=== PATIENT | male | born 1980 | race Caucasian/White ===

== ENCOUNTER 2017-06-30 12:15 | Day surgery (SDC) | payer OTHER ==
[2017-06-28 14:13] VITALS: BMI 34.8
[~2017-06-30 12:15] MED LIST: LACTATED RINGERS 1,000 ML IV SCH; LIDOCAINE 1% 20 ML VIAL (10MG/ML) FOR IV START INTRADERMA PRN
[2017-06-30 12:49] VITALS: RESP 16; TEMP 98.1
[2017-06-30] MEDS ORDERED: LIDOCAINE 1% INJ 10MG/ML (20 ML MDV) ONE (13:49)
[2017-06-30] MEDS ORDERED: PROPOFOL 10 MG/ML 20 ML VIAL IV ONE (13:49)
--- NOTE | 2017-06-30 14:07 | P.PCN ---
Date of Procedure: 06/30/17 Preoperative Diagnosis: Recurrent pneumonia, hemoptysis failed response to outpatient therapy Postoperative Diagnosis: As above Procedure(s) Performed: Bronchoscopy, bronchioloalveolar lavage of right upper lobe right lower lobe and left lower lobe Surgeon: Delano Carreno Estimated Blood Loss (ml): 5 Condition: stable Disposition: same day Indications for Procedure: Recurrent pneumonia, hemoptysis, shortness of breath, failed outpatient therapy Operative Findings: As below Description of Procedure: Patient prepared and draped in usual fashion, informed consent obtained from the patient procedure explained to the patient at length including alternative side effect and complication. Viscous lidocaine was utilized to numb up the right nostril with Q-tips. Fiberoptic bronchoscope was passed through the right nares the tip of the scope passed beyond the vaginal area vocal cords were inspected they were normal structure and function tip of the scope was passed beyond the vocal cords into the trachea mildly right femur edema bilaterally was seen there is scattered mucus plugging bilaterally was seen there were thick purulent in color and plugging the bronchoscope, diffuse bilateral right femur edema was seen. Right upper lobe wedged BAL was performed followed by BAL of the right lower lobe and left lower lobe, patient tolerated procedure well no complication noted.
[2017-06-30 14:41] VITALS: BP 132/70; PULSE 88
== END 2017-06-30 15:04 | disposition home or self-care (01) ==
LOC: ORWHC2ENDO 12:15
PROVIDERS: ATTEND Internal Medicine Sleep Medicine
DX: J18.8 Other pneumonia, unspecified organism (principal); R04.2 Hemoptysis; R05 Cough
CPT/HCPCS: 88108; 88305; 31624; J2001; J2704